=== PATIENT | male | born 1995 | race African-American/Black ===

== ENCOUNTER 2017-01-12 11:49 | Emergency (ER) | payer OTHER ==
[~2017-01-12] VITALS: Ht 185.4 cm; Wt 74.8 kg
[2017-01-12 11:52] VITALS: BP 138/85
[2017-01-12] MEDS ORDERED: NORCO 5-325 TA1 EACH PO (12:43)
== END 2017-01-12 13:36 | disposition home or self-care (01) ==
LOC: ER 11:49
DX: S30.811A Abrasion of abdominal wall, initial encounter (principal); S40.812A Abrasion of left upper arm, initial encounter; S40.811A Abrasion of right upper arm, initial encounter; S80.812A Abrasion, left lower leg, initial encounter; S80.811A Abrasion, right lower leg, initial encounter; S30.810A Abrasion of lower back and pelvis, initial encounter; V28.9XXA Unspecified motorcycle rider injured in noncollision transport accident in traffic accident, initial encounter; Y93.89 Activity, other specified; Y92.89 Other specified places as the place of occurrence of the external cause; Y99.8 Other external cause status